=== PATIENT | male | born 1975 | race Caucasian/White ===

== ENCOUNTER → 2017-04-24 | Outpatient (CLI) | payer OTHER ==
[~2017-04-24] MED LIST: ADVAIR 250-501 EACH; CLARITIN10 MG PO; ENTOCORT EC3 MG PO; PHENERGAN PO; PREDNISONE PO; PROAIR HFA8.5 GM; PROAIR HFA8.5 GM INH; ZITHROMAX PO
--- NOTE | ~2017-04-24 | CT114 ---
[facility] A Service of [facility] & [facility] RADIOLOGY TEXT RESULTS PATIENT: SAJAN WOLFE LOCATION: [facility] : 75 UNIT #: [id number] AGE: [address]: ROME DUMONT SEX: M ORDER DR: [id number] [address] [id number] O MR#: [id number] [facility] #: [id number] NAME: SAJAN WOLFE : 1975 SEX: M STUDY DATE/TIME: 04/24/2017 14:15 UNIT: [facility] ROOM: STUDY DESCRIPTION: CT Soft Tissue Neck W Cont Attending Physician: Cat Dumont Aprn Referring Physician: Cat Dumont Aprn Ordering Physician: Staff Doctor Not On Primary Care Physician: Cat Dumont Aprn MEDICAL IMAGING REPORT This report is preliminary unless electronic signature is present. EXAM Neck CT with contrast. HISTORY Right-sided palpable mass upper neck and jaw region. Abnormal ultrasound done at an outside facility. TECHNIQUE Axial imaging was obtained from the skull base to upper mediastinum with contrast. 75 mL of Isovue was used. A Gel-Cap marker was placed at the site of palpable abnormality. This CT exam was performed with one or more of the following radiation dose reduction techniques: automatic exposure control, adjustment of mA and/or kV according to patient size, and iterative reconstruction. FINDINGS The skull base, parapharyngeal spaces and pharyngeal mucosal surfaces have a normal appearance. The septum deviates to the right. Mucosal thickening is seen in the right maxillary sinus with a small amount of fluid noted. The parotid and submandibular glands are symmetric. At the site of palpable abnormality, there is a small solid subcutaneous mass seen. It is located approximately 8-9 mm deep to the skin. It has irregular shaggy borders and measures 7.4 mm in diameter. There are no enlarged cervical lymph nodes. Soft tissue planes in the hypopharynx and larynx are preserved. The trachea is widely patent and the thyroid gland is not enlarged. The upper mediastinum is unremarkable. IMPRESSION At the site of palpable abnormality, there is a small solid and nonspecific nodule in the subcutaneous fat measuring 7.4 mm in diameter. No calcifications are seen within it. 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 [facility]. [facility] A Service of [facility] RADIOLOGY TEXT RESULTS PATIENT: SAJAN WOLFE LOCATION: [facility] : 75 UNIT #: [id number] AGE: [address]: ROME DUMONT SEX: M ORDER DR: Dictated by... Chirag Fan M.D. THIS IS AN ELECTRONICALLY VERIFIED REPORT Chirag Fan M.D. at 04/25/2017 4:29 PM LG/nely TD: 04/24/2017 20:14 JOB #: [id number] MEDICAL IMAGING REPORT Page 1 of 1
[2017-04-24 14:11] LABS: POC - CREATININE 0.89 mg/dL (0.64-1.27); POC - GFR >60.0 mL/min (>60)
== END | disposition home or self-care (01) ==
LOC: SCT 13:52
PROVIDERS: Nurse Practitioner
DX: M79.9 Soft tissue disorder, unspecified (principal); R93.8 Abnormal findings on diagnostic imaging of other specified body structures; J34.89 Other specified disorders of nose and nasal sinuses
CPT/HCPCS: 70491; 82565; Q9967